=== PATIENT | male | born 1970 | race Two or more races ===

== ENCOUNTER 2024-10-11 12:09 | Emergency (ER) | payer MEDICAID, SELFPAY ==
[2024-10-11 12:10] VITALS: BMI 27.7
[2024-10-11 13:03] VITALS: BP 126/77; PULSE 100; RESP 18; TEMP 37.1; O2SAT 98
--- NOTE | 2024-10-11 13:18 | XR_ITS ---
Examination: PA lateral chest 2 views Technique: Upright PA lateral chest 2 views Exam date and time: October 11, 2024 1337 hrs. Comparison November 30, 2021 Indications: Difficulty breathing coughing beginning 2 days ago. Findings: Normal heart size Lungs are clear. The osseous structures are intact Impression: No active disease
--- NOTE | 2024-10-11 13:19 | EDNOTE_ITS ---
Upper Respiratory Inf. RME/HPI General Chief Complaint: Flu Like Symptoms Stated Complaint: HEADACHE, COUGH, DIFF BREATHING, BACK PAIN Time Seen by Provider: 10/11/24 13:02 Arrival date/time: 10/11/24 12:09 This is a 54-year-old male that comes in with complaints of a cough, sore throat, runny nose for the past 3 days. Patient denies past medical history. Related Data Previous Rx's ?Medication ?Instructions ?Recorded albuterol sulfate 90 mcg/actuation 2 puff inhalation Q6H PRN 10/11/24 aerosol inhaler shortness of breath or wheezing #8.5 grams ibuprofen 800 mg tablet 800 mg PO Q6H PRN pain #14 tabs 10/11/24 Allergies Allergy/AdvReac Type Severity Reaction Status Date / Time morphine AdvReac Severe HALLUCINATE Verified 10/11/24 12:12 S Review of Systems Review of Systems Systems Reviewed: All systems reviewed, normal except as documented Past Medical History Past Medical History CARDIAC: Negative Congestive Heart Failure RESPIRATORY: Negative Chronic Obstructive Pulmonary Disease (COPD) GENITOURINARY: Negative Renal Disease ENDOCRINE: Negative Diabetes Mellitus Type 1 or Diabetes Mellitus Type 2 Social History SMOKING STATUS: Current every day smoker ED Exam General General appearance: Present alert and in no apparent distress Head Head exam: Present atraumatic Eye Eye exam: Present normal appearance, PERRL and EOMI ENT ENT exam: Present normal exam, normal oropharynx and mucous membranes moist Neck Neck exam: Present normal inspection, full ROM and trachea midline Chest Chest inspection: Present normal inspection and symmetric chest wall rise Respiratory Respiratory exam: Present normal lung sounds bilaterally Cardiovascular Cardiovascular exam: Present regular rate, normal rhythm and normal heart sounds Abdominal Exam Abdominal exam: Present soft and normal bowel sounds Extremities Exam Extremities exam: Present normal inspection and full ROM Back Exam Back exam: Present normal inspection and full ROM Neurological Exam Neurological exam: Present alert, oriented X3 and CN II-XII intact Psychiatric Psychiatric exam: Present normal affect and normal mood Skin Skin exam: Present warm, dry, intact and normal color Course Quality Measures none Orders Category Date Time Status Bedside COVID-19 Antigen Test NOW Care 10/11/24 13:18 Completed Bedside Influenza A&B Antigen Test NOW Care 10/11/24 13:18 Completed XR chest 2V Stat Exams 10/11/24 13:18 Completed Acetaminophen Tab [Tylenol ES Tab] Med 10/11/24 13:19 Discontinued 1,000 mg PO X1 ONE Ibuprofen Tab [Motrin Tab] Med 10/11/24 13:19 Discontinued 800 mg PO X1 ONE Vital Signs Vital signs: Vital Signs Temperature 98.7 F 10/11/24 13:03 Pulse Rate 100 10/11/24 13:03 Respiratory Rate 18 10/11/24 13:03 Blood Pressure 126/77 10/11/24 13:03 Pulse Oximetry (%) 98 10/11/24 13:03 Oxygen Delivery Method Room Air 10/11/24 13:03 Upper Respiratory Infection MDM Narrative MDM Narrative:: Patient influenza and covid negative. chest x ray: Findings: Normal heart size Lungs are clear. The osseous structures are intact Impression: No active disease Patient given tylenol and ibuprofen for pain. Patient data External records reviewed:: [facility] previous records Clinical information provided by:: patient Social determinants that could affect healthcare access:: none Patient has the following chronic illnesses:: none How is presenting disease/condition affected by chronic disease/condition?: no chronic disease Evaluation data The following diagnostics were reviewed and interpreted by me:: lab results Lab and/or radiology exams considered but not ordered:: none Interpretation Summary: see note Medications / Prescriptions Medications or Prescriptions considered but not ordered:: none Medication administrations:: Medication Administration History Discontinued Medications Acetaminophen (Acetaminophen 500 Mg Tablet) 1,000 mg PO X1 ONE Stop: 10/11/24 13:20 Last Admin: 10/11/24 13:51 Dose: 1,000 mg Documented By: Ibuprofen (Ibuprofen Tab 400 Mg Tablet) 800 mg PO X1 ONE Stop: 10/11/24 13:20 Last Admin: 10/11/24 13:50 Dose: 800 mg [facility]ed [facility]: [facility] Consultations Consultation(s) initiated? (list below): No Diagnosis Upper Respiratory Differential Diagnosis: upper respiratory infection, viral infection, bronchitis, influenza and pharyngitis Most likely diagnosis given after review of the tests above:: reactive airway disease Admission Indicated Admission indicated?: not indicated Admission Request Was there a request for admission?: No Disposition Plan Disposition Plan: Discharge Discharge Attestation Discharge Attestation: The patient and all family members were given an opportunity to ask questions and understood the discharge instructions. Discharge instructions specifically effects, indications for sooner follow up or return to the emergency department, and the expected course of current diagnosis. Patient condition: Stable Discharge Plan Plan Patient Disposition: HOME (Self Care) Patient condition on transfer: Stable Prescriptions/Referrals Prescriptions/Med Rec: New albuterol sulfate 90 mcg/actuation HFA aerosol inhaler 2 puff inhalation Q6H PRN (Reason: shortness of breath or wheezing) Qty: 8.5 0RF ibuprofen 800 mg tablet 800 mg PO Q6H PRN (Reason: pain) Qty: 14 0RF Referrals: Kathy Dunham PA-C [Primary Care Provider] - In 1 week Problem List Clinical Impression: Viral respiratory illness, Cough, Reactive airway disease Patient/Caregiver Discharge Instructions Discharge Activity: activity as tolerated Education Materials: ED Inhaler Use, ED URI, Viral W/ Wheezing (Adult) Additional Instructions: Follow up with primary provider in 1-2 days. Come back to ED if symptoms change or worsen. Use inhaler as instructed. Print Language: Latvian Stand Alone Forms: [facility]hma Award Info., Patient Portal Info Letter PA/IONA Supervising Physician PA/IONA Supervising Physician: wilner
[2024-10-11] MEDS: IBUPROFEN TAB 400 MG TABLET 800 MG PO (13:50)
[2024-10-11] MEDS: ACETAMINOPHEN 500 MG TABLET 1000 MG PO (13:51)
== END 2024-10-11 16:35 | disposition home or self-care (01) ==
PROVIDERS: Emergency Provider Emergency Medicine; PCP Physician Assistant
DX: J06.9 Acute upper respiratory infection, unspecified (principal); F17.210 Nicotine dependence, cigarettes, uncomplicated; J45.909 Unspecified asthma, uncomplicated
CPT/HCPCS: 71046; 87400; 87811; 99283; A9270